=== PATIENT | male | born 1975 ===

== ENCOUNTER 2017-11-16 17:00 | Emergency (ER) | payer SELFPAY ==
[2017-11-17] MEDS ORDERED: CATAPRES PO ONE ×2 (01:32→04:11)
[2017-11-17] MEDS ORDERED: ULTRAM ONE (01:58)
[2017-11-17] MEDS ORDERED: ULTRAM PO ONE (02:00)
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
[2017-11-17] MEDS ORDERED: MOTRIN ONE (06:38)
[2017-11-17 06:45] VITALS: BP 143/98
== END 2017-11-17 07:05 | disposition home or self-care (01) ==
LOC: ED 17:00
DX: L02.01 Cutaneous abscess of face (principal); I10 Essential (primary) hypertension; E11.9 Type 2 diabetes mellitus without complications; F17.200 Nicotine dependence, unspecified, uncomplicated; Z91.14 Patient's other noncompliance with medication regimen; Z88.0 Allergy status to penicillin; Z90.49 Acquired absence of other specified parts of digestive tract
CPT/HCPCS: 99282